=== PATIENT | female | born 1995 | race African-American/Black ===

== ENCOUNTER 2017-08-13 19:55 | Emergency (ER) | payer BC ==
[~2017-08-13] VITALS: Ht 160 cm; Wt 47.5 kg
[2017-08-13 20:18] VITALS: BP 109/68; PULSE 70; RESP 18; TEMP 98.3; O2SAT 98
--- NOTE | 2017-08-13 21:14 | RADRPT ---
EXAM DATE/TIME: 08/13/2017 20:56 [place] COMPARISON: No previous studies available for comparison. INDICATIONS : Left lower side rib pain, no known injury. MEDICAL HISTORY : Scoliosis. SURGICAL HISTORY : None. ENCOUNTER: Initial ACUITY: 2 days PAIN SCORE: 9/10 LOCATION: Left rib FINDINGS: Multiple views of the left ribs were performed. There is no evidence of displaced fracture. No dest ructive lesions or areas of periosteal thickening are seen. Expiratory view of the chest is negative for pneumothorax. Prominent levoscoliosis of the thoracolumbar spine centered at T10-12. CONCLUSION: 1. Prominent levoscoliosis of the thoracolumbar spine. 2. No displaced rib fractures or pneumothorax. Deion Collado MD on August 13, 2017 at 21:12 Board Certified Radiologist. This report was verified electronically.
[2017-08-13] MEDS ORDERED: IBUP-232 PO (21:44)
[2017-08-13] MEDS ORDERED: KETOROLAC TROMETHAMINE 60 MG/2 ML (IM) VIAL IM ONE (21:45)
--- NOTE | 2017-08-13 21:46 | PD ---
HPI Chief Complaint: Musculoskeletal Complaint Time Seen by Provider: 21:31 Travel History International Travel<30 days: No Contact w/Intl Traveler<30days: No Traveled to known affect area: No History of Present Illness HPI The patient is a 22-year-old female that complains of left-sided rib pain for 5 years. She has a history of scoliosis. She does not have a primary care physician and just moved from [facility]. Hurts when she takes a deep breath and when she walks. 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 PFSH Past Medical History Arthritis: Yes Diminished Hearing: No GERD: Yes Musculoskeletal: Yes (scoliosis) Neurologic: Yes (sciatica) ?: Not Past Surgical History Tonsillectomy: Yes Social History Alcohol Use: No Tobacco Use: Yes (socially) Substance Use: No Allergies-Medications (Allergen,Severity, Reaction): Coded Allergies: shellfish derived (Verified Allergy, Unknown, 08/13/17) Reported Meds & Prescriptions Reported Meds & Active Scripts Active No Active Prescriptions or Reported Medications Review of Systems Except as stated in HPI: all other systems reviewed are Neg Physical Exam Narrative GENERAL: Well-nourished, well-developed patient in moderate apparent distress with her left rib pain. Her vital signs are normal. SKIN: Focused skin assessment warm/dry. HEAD: Normocephalic. EYES: No scleral icterus. No injection or drainage. NECK: Supple, trachea midline. No JVD or lymphadenopathy. CARDIOVASCULAR: Regular rate and rhythm without murmurs, gallops, or rubs. RESPIRATORY: Breath sounds equal bilaterally. No accessory muscle use. Lungs clear to auscultation bilaterally. GASTROINTESTINAL: Abdomen soft, non-tender, nondistended. MUSCULOSKELETAL: No cyanosis, or edema. BACK: Nontender without obvious deformity. No CVA tenderness. Data Data Last Documented VS Vital Signs Date Time Temp Pulse Resp B/P (MAP) Pulse Ox O2 Delivery O2 Flow Rate FiO2 08/13/17 20:18 98.3 70 18 109/68 (82) 98 Orders Orders Ribs, Uni (W/Exp Cxr-Min 3vw) (08/13/17 ) Ketorolac Inj (Toradol Inj) (08/13/17 21:45) MDM Medical Decision Making Medical Screen Exam Complete: Yes Emergency Medical Condition: Yes Medical Record Reviewed: Yes Interpretation(s) The x-rays showed levoscoliosis, no rib fracture or pneumothorax is identified. Differential Diagnosis Scoliosis, musculoskeletal pain, pneumothorax-unlikely, fractured rib-unlikely Narrative Course The patient has scoliosis with left rib pain. She needs to follow-up with a primary care physician who then can refer her to a specialist. This is chronic pain and narcotics are not ideal because of their addictive potential. Diagnosis Primary Impression: Scoliosis Additional Impression: Rib pain on left side Additional Instructions: As we discussed, you should follow-up with a primary care physician who then can refer you to a specialist. This is likely to be a long route. The ibuprofen is taken one tablet 3 times daily. Med/Other Pt SpecificInfo: Prescription(s) given Scripts Ibuprofen (Ibuprofen) 600 Mg Tab 600 MG PO TID, #44 TAB 0 Refills Prov: Mendoza Gil MD 08/13/17 Disposition: 01 DISCHARGE HOME Condition: Stable Mendoza Gil MD Aug 13, 2017 21:46
== END 2017-08-13 21:56 | disposition home or self-care (01) ==
LOC: PHEFT 19:55
DX: R07.81 Pleurodynia (principal); M41.9 Scoliosis, unspecified; M19.90 Unspecified osteoarthritis, unspecified site; K21.9 Gastro-esophageal reflux disease without esophagitis; Z72.0 Tobacco use
CPT/HCPCS: 71101; 96372; 99283; J1885